=== PATIENT | male | born 1950 | race Caucasian/White ===

== ENCOUNTER 2024-10-31 07:30 | Day surgery (SDC) | payer MEDICARE, BC ==
[~2024-10-31] VITALS: Ht 188 cm; Wt 94.3 kg
[~2024-10-31 07:30] MED LIST: LISINOPRIL20 MG PO; TRAMADOL PO; XANAX0.5 MG PO
[2024-10-31] MEDS ORDERED: SODIUM CHLORIDE 0.9% 1,000 ML IV ONE (07:34)
[2024-10-31] MEDS ORDERED: FAMOTIDINE 10MG/ML 2ML SDV IV ONE (07:34)
[2024-10-31 09:21] VITALS: BP 123/83
[2024-10-31] MEDS ORDERED: GLYCOPYRROLATE 0.2 MG/ML IV ONE (11:29)
[2024-10-31] MEDS ORDERED: LIDOCAINE HCL 2% 2ML SDV IV ONE (11:29)
[2024-10-31] MEDS ORDERED: PROPOFOL 200 MG/20 ML VIAL IV ONE (11:29)
== END 2024-10-31 09:33 | disposition home or self-care (01) ==
LOC: ORM 07:30
PROVIDERS: ATTEND Surgery
PROC: 0DBK8ZX Excision of Ascending Colon, Via Natural or Artificial Opening Endoscopic, Diagnostic (ICD-10-PCS; principal; 2024-10-31)
PROC: 0DBL8ZX Excision of Transverse Colon, Via Natural or Artificial Opening Endoscopic, Diagnostic (ICD-10-PCS; 2024-10-31)
PROC: 0DBN8ZX Excision of Sigmoid Colon, Via Natural or Artificial Opening Endoscopic, Diagnostic (ICD-10-PCS; 2024-10-31)
PROC: 0DBM8ZX Excision of Descending Colon, Via Natural or Artificial Opening Endoscopic, Diagnostic (ICD-10-PCS; 2024-10-31)
DX: Z12.11 Encounter for screening for malignant neoplasm of colon (principal); D12.2 Benign neoplasm of ascending colon; D12.3 Benign neoplasm of transverse colon; D12.4 Benign neoplasm of descending colon; K63.5 Polyp of colon; K64.8 Other hemorrhoids; I10 Essential (primary) hypertension; F17.200 Nicotine dependence, unspecified, uncomplicated
CPT/HCPCS: J1596